=== PATIENT | female | born 1930 | race Caucasian/White ===

== ENCOUNTER 2017-09-01 12:45 | Emergency (ER) | payer MEDICARE, BC ==
[2017-09-01] MEDS ORDERED: Ciprofloxacin 500 MG Tab PO ONE (12:46)
[2017-09-01 13:10] VITALS: BP 110/67
--- NOTE | 2017-09-01 13:15 | EDM.PDOC ---
ED HPI GENERAL MEDICAL PROBLEM - General Chief Complaint: General Stated Complaint: near syncope Time Seen by Provider: 09/01/17 13:06 Source of Information: Reports: Patient, Family History Limitations: Reports: No Limitations - History of Present Illness INITIAL COMMENTS - FREE TEXT/NARRATIVE: This patient is an 87 year old female that presents to the ER. The patient was out to lunch at noon with her family. She reports that she was sitting there and just had finished eating. The patient reports that all of a sudden she did not feel well. She reports that she felt funny. The patient reports she started to sweat. She reports that she felt like she had to have a BM. She reports that her family would not allow her to get up and go to the bathroom because they were concerned she was going to have pass out. The patient reports that when she got sweaty that she had a small global headache. The patient reports that she generally felt weak. The patient family reports that they were with her and she looked tired. They report taking her BP on site and said it was low. But, did not have the numbers. The patient currently in the ER reports that she has a mild headache. She reports that she feels a "little funny".The patient denies dizziness, lightheaded, neck pain, n, v, d, f, vision changes, cp, soa, abd pain , urinary/bowel changes. The family reports that recently the patient had family over and the sewage system in the home was overworked. So, the patient over the last several days has not drank water, or used the bathroom to help the sewage system from overloading. They are concerned that she may have a UTI. Onset: Today Onset Date: 09/01/17 Onset Time: 12:00 Location: Reports: Head Quality: Reports: Ache Severity: Mild Improves with: Reports: None Worsens with: Reports: None Associated Symptoms: Reports: Diaphoresis, Headaches, Malaise, Weakness ( generally). Denies: Confusion, Chest Pain, Cough, cough w sputum, Fever/Chills , Loss of Appetite, Nausea/Vomiting, Rash, Seizure, Shortness of Breath, Syncope - Related Data Allergies Allergy/AdvReac Type Severity Reaction Status Date / Time No Known Allergies Allergy Verified 09/01/17 13:40 Home Meds: Home Meds Aspirin [Adult Low Dose Aspirin EC] 81 mg PO BID 12/06/14 [History] Calcium Carbonate [Calcium] 500 mg PO DAILY 12/06/14 [History] Cholecalciferol (Vitamin D3) [Vitamin D3] 2,000 unit PO DAILY 12/06/14 [History] Lisinopril 10 mg PO DAILY 12/06/14 [History] Magnesium 250 mg PO DAILY 12/06/14 [History] Multivitamin [Daily Multiple Vitamin] 1 tab PO DAILY 12/06/14 [History] Potassium Chloride 10 meq PO DAILY 12/06/14 [History] Simvastatin [Zocor] 10 mg PO DAILY 12/06/14 [History] Triamterene/Hydrochlorothiazid [Triamterene-HCTZ 37.5-25 MG] 1 each PO Q48H 07/16 [History] hydrALAZINE [Apresoline] 25 mg PO BID 12/06/14 [History] metFORMIN [Glucophage] 500 mg PO BIDMEALS 12/06/14 [History] Acetaminophen/HYDROcodone [[place] 325-5 MG] 1 tab PO Q4H PRN #20 tablet 12/14/14 [Rx] Past Medical History Other Hematologic History: hypokalemia - Past Surgical History Other Musculoskeletal Surgeries/Procedures:: hip surgery Social & Family History - Family History Family Medical History: Noncontributory - Tobacco Use Smoking Status *Q: Never Smoker Second Hand Smoke Exposure: No - Living Situation & Occupation Living situation: Reports: , Alone Occupation: Retired ED ROS GENERAL - Review of Systems Review Of Systems: See Below Constitutional: Reports: Diaphoresis, Other ("funny feeling") HEENT: Reports: No Symptoms Respiratory: Reports: No Symptoms Cardiovascular: Reports: No Symptoms Endocrine: Reports: No Symptoms GI/Abdominal: Reports: No Symptoms : Reports: No Symptoms Musculoskeletal: Reports: No Symptoms Skin: Reports: No Symptoms Neurological: Reports: Headache Psychiatric: Reports: No Symptoms Hematologic/Lymphatic: Reports: No Symptoms Immunologic: Reports: No Symptoms ED EXAM, GENERAL - Physical Exam Exam: See Below Exam Limited By: No Limitations General Appearance: Alert, WD/WN, No Apparent Distress Eye Exam: Bilateral Eye: EOMI, Normal Inspection, PERRL Ears: Normal External Exam, Normal Canal, Hearing Grossly Normal, Normal TMs Ear Exam: Bilateral Ear: Auricle Normal, Canal Normal, TM normal Nose: Normal Inspection, Normal Mucosa, No Blood Throat/Mouth: Normal Inspection, Normal Lips, Normal Gums, Normal Oropharynx, Normal Voice, No Airway Compromise Head: Atraumatic, Normocephalic Neck: Normal Inspection, Supple, Non-Tender, Full Range of Motion Respiratory/Chest: No Respiratory Distress, Lungs Clear, Normal Breath Sounds, No Accessory Muscle Use Peripheral Pulses: 2+: Radial (L), Radial (R), Posterior Tibial (L), Posterior Tibial (R), Dorsalis Pedis (L), Dorsalis Pedis (R) GI/Abdominal: Normal Bowel Sounds, Soft, Non-Tender, No Organomegaly, No Distention, No Abnormal Bruit, No Mass, Pelvis Stable (Female) Exam: Deferred Rectal (Female) Exam: Deferred Back Exam: Normal Inspection, Full Range of Motion. No: CVA Tenderness (L), CVA Tenderness (R) Extremities: Normal Inspection, Normal Range of Motion, Non-Tender, No Pedal Edema, Normal Capillary Refill Neurological: Alert, Oriented, CN II-XII Intact, Normal Cognition, Normal Gait, No Motor/Sensory Deficits Psychiatric: Normal Affect, Normal Mood Skin Exam: Warm, Dry, Intact, Normal Color, No Rash Lymphatic: No Adenopathy EKG INTERPRETATION EKG Date: 09/01/17 Time: 13:29 Rhythm: NSR Rate (Beats/Min): 80 ST-T: Normal Comparison: NA - No Prior EKG Course - Vital Signs Last Recorded V/S: Last Vital Signs Temp 98.2 F 09/01/17 13:01 Pulse 77 09/01/17 13:01 Resp 18 09/01/17 13:01 BP 110/67 09/01/17 13:01 Pulse Ox 96 09/01/17 13:01 - Orders/Labs/Meds Orders: Active Orders 24 hr Category Date Time Status CXR [Chest 2V] [CR] Stat Exams 09/01/17 12:54 Taken Head wo Cont [CT] Stat Exams 09/01/17 13:06 Taken CULTURE URINE [RM] Stat Lab 09/01/17 16:18 Received UA W/MICROSCOPIC [URIN] Stat Lab 09/01/17 12:52 Ordered Labs: Laboratory Tests 09/01/17 09/01/17 09/01/17 Range/Units 12:52 13:08 13:08 WBC 6.3 (5.0-10.0) 10^3/uL RBC 4.12 (4.00-5.50) 10^6/uL Hgb 12.8 (12.0-16.0) g/dL Hct 37.9 (37.0-47.0) % MCV 92.0 (82.0-94.0) fL MCH 31.1 (27.0-32.0) pg MCHC 33.8 (33.0-38.0) g/dL RDW Coeff of [place] 11.8 (11.0-15.0) % Plt Count 171 (150-400) 10^3/uL Neut % (Auto) 65.3 (35-85) % Lymph % (Auto) 21.4 (10-55) % [place] % (Auto) 11.2 (0-16) % Eos % (Auto) 1.9 (0-5) % Baso % (Auto) 0.2 (0-3) % Neut # (Auto) 4.09 (1.80-7.00) 10^3/uL Lymph # (Auto) 1.34 (1.00-4.80) 10^3/uL [place] # (Auto) 0.70 (0.00-0.80) 10^3/uL Eos # (Auto) 0.12 (0.00-0.45) 10^3/uL Baso # (Auto) 0.01 10^3/uL PT 10.4 (9.7-12.3) SEC INR 1.00 (0.92-1.18) APTT 26.7 (23.2-32.3) SEC Sodium (136-145) mEq/L Potassium (3.5-5.0) mEq/L Chloride (98-106) mEq/L Carbon Dioxide (21-32) mmol/L BUN (7-18) mg/dL Creatinine (0.6-1.0) mg/dL Est Cr Clr Drug Dosing Estimated GFR (MDRD) (>=60) mL/min Glucose (75-99) mg/dL Calcium (8.4-10.1) mg/dL Total Bilirubin (0.0-1.0) mg/dL AST (15-37) U/L ALT (12-78) U/L Alkaline Phosphatase (46-116) U/L Lactate Dehydrogenase (100-190) U/L Creatine Kinase (21-215) U/L Troponin I (0.00-0.06) ng/mL NT-Pro-B Natriuret Pep (0-1000) pg/mL Total Protein (6.4-8.2) g/dL Albumin (3.4-5.0) g/dL Urine Color Light yellow (YELLOW) Urine Appearance Cloudy (CLEAR) Urine pH 6.5 (4.5-8.0) Ur Specific [place] 1.015 (1.003-1.020) Urine Protein Trace H (NEGATIVE) mg/dL Urine Glucose (UA) 250 H (NEGATIVE) mg/dL Urine Ketones Negative (NEGATIVE) mg/dL Urine Occult Blood Trace-intact H (NEGATIVE) Urine Nitrite Negative (NEGATIVE) Urine Bilirubin Negative (NEGATIVE) Urine Urobilinogen 1.0 (0.2-1.0) EU/dL Ur Leukocyte Esterase Large H (NEGATIVE) Urine RBC 0-5 (0-5) /HPF Urine WBC Packed H (0-5) /HPF Urine Bacteria Many H (NOT SEEN) /HPF 09/01/17 09/01/17 09/01/17 Range/Units 13:08 13:08 15:30 WBC (5.0-10.0) 10^3/uL RBC (4.00-5.50) 10^6/uL Hgb (12.0-16.0) g/dL Hct (37.0-47.0) % MCV (82.0-94.0) fL MCH (27.0-32.0) pg MCHC (33.0-38.0) g/dL RDW Coeff of [place] (11.0-15.0) % Plt Count (150-400) 10^3/uL Neut % (Auto) (35-85) % Lymph % (Auto) (10-55) % [place] % (Auto) (0-16) % Eos % (Auto) (0-5) % Baso % (Auto) (0-3) % Neut # (Auto) (1.80-7.00) 10^3/uL Lymph # (Auto) (1.00-4.80) 10^3/uL [place] # (Auto) (0.00-0.80) 10^3/uL Eos # (Auto) (0.00-0.45) 10^3/uL Baso # (Auto) 10^3/uL PT (9.7-12.3) SEC INR (0.92-1.18) APTT (23.2-32.3) SEC Sodium 139 (136-145) mEq/L Potassium 3.9 (3.5-5.0) mEq/L Chloride 103 (98-106) mEq/L Carbon Dioxide 28 (21-32) mmol/L BUN 33 H (7-18) mg/dL Creatinine 1.3 H (0.6-1.0) mg/dL Est Cr Clr Drug Dosing TNP Estimated GFR (MDRD) 39 L (>=60) mL/min Glucose 283 H D (75-99) mg/dL Calcium 9.0 (8.4-10.1) mg/dL Total Bilirubin 1.0 (0.0-1.0) mg/dL AST 29 (15-37) U/L ALT 24 (12-78) U/L Alkaline Phosphatase 109 (46-116) U/L Lactate Dehydrogenase 212 H (100-190) U/L Creatine Kinase 379 H (21-215) U/L Troponin I < 0.017 < 0.017 (0.00-0.06) ng/mL NT-Pro-B Natriuret Pep 107 (0-1000) pg/mL Total Protein 7.1 (6.4-8.2) g/dL Albumin 3.6 (3.4-5.0) g/dL Urine Color (YELLOW) Urine Appearance (CLEAR) Urine pH (4.5-8.0) Ur Specific [place] (1.003-1.020) Urine Protein (NEGATIVE) mg/dL Urine Glucose (UA) (NEGATIVE) mg/dL Urine Ketones (NEGATIVE) mg/dL Urine Occult Blood (NEGATIVE) Urine Nitrite (NEGATIVE) Urine Bilirubin (NEGATIVE) Urine Urobilinogen (0.2-1.0) EU/dL Ur Leukocyte Esterase (NEGATIVE) Urine RBC (0-5) /HPF Urine WBC (0-5) /HPF Urine Bacteria (NOT SEEN) /HPF Meds: Medications Discontinued Medications Generic Name Dose Route Start Last Admin Trade Name Freq PRN Reason Stop Dose Admin Ceftriaxone Sodium 1 gm 09/01/17 16:31 09/01/17 17:25 Rocephin IVPUSH 09/01/17 16:32 1 gm ONETIME ONE Administration Ciprofloxacin 1 packet 09/01/17 17:05 09/01/17 17:33 Take Home: Ciprofloxacin 500 Mg, 2 Tab Pack PO 09/01/17 17:06 Not Given ONETIME ONE Sodium Chloride 1,000 mls @ 1,000 mls/hr 09/01/17 13:38 09/01/17 17:33 Normal Saline IV 09/01/17 14:37 Not Given .BOLUS ONE - Radiology Interpretation Free Text/Narrative:: Head CT: No acute findings. CT Results Date: 09/01/17 - Re-Assessments/Exams Free Text/Narrative Re-Assessment/Exam: 09/01/17 17:05 This patient has renal insufficiency and UTI. I have discussed with her and family possibility of admission verses going home. The patient is currently drinking water. The patient does not want to be admitted. She reports that she would like to go home. She reports that she will drink a lot of water at home. She is alert and oriented. She reports she feels much better and has no complaints. Family with her at bedside reports that they feel comfortable taking her home. I will discharge this patient. Family and the patient have been educated and voice understanding of when to return. Understand risks of going home. Departure - Departure Time of Disposition: 17:02 Disposition: Home, Self-Care 01 Condition: Fair Clinical Impression: Dehydration, Renal insufficiency, UTI, Urinary tract infectious disease - Discharge Information Instructions: Urinary Tract Infection, Adult, [id number], Dehydration, Elderly Referrals: Mert Banerjee MD [Primary Care Provider] - Forms: ED Department Discharge Additional Instructions: Followup with primary care provider this week for recheck Return to ER for worsening of condition or any emergent concerns Increase water intake Cipro 500mg 1 pill twice a day for 5 days #10 no refill: 1 day take home #2 no refill - My Orders Last 24 Hours: My Active Orders 09/01/17 12:52 UA W/MICROSCOPIC [URIN] Stat 09/01/17 12:54 CXR [Chest 2V] [CR] Stat 09/01/17 13:06 Head wo Cont [CT] Stat 09/01/17 16:18 CULTURE URINE [RM] Stat - Assessment/Plan Last 24 Hours: My Active Orders 09/01/17 12:52 UA W/MICROSCOPIC [URIN] Stat 09/01/17 12:54 CXR [Chest 2V] [CR] Stat 09/01/17 13:06 Head wo Cont [CT] Stat 09/01/17 16:18 CULTURE URINE [RM] Stat Plan: PLEASE SEE RN NOTE FOR PFSH.
[2017-09-01 13:27] LABS: CHLORIDE,CL 103 mEq/L (98-106); SODIUM,NA 139 mEq/L (136-145)
[2017-09-01] MEDS ORDERED: Sodium Chloride 0.9% 1,000 ML IV ONE (13:38)
[2017-09-01] MEDS ORDERED: cefTRIAXone 1 GM Vial IVPUSH ONE (16:31)
[2017-09-01] MEDS ORDERED: Take Home: Ciprofloxacin 500 MG Tab, 2 Tab Pack PO ONE (17:05)
== END 2017-09-01 17:25 | disposition home or self-care (01) ==
LOC: CC.ED 12:45
DX: E86.0 Dehydration (principal); N39.0 Urinary tract infection, site not specified; N28.9 Disorder of kidney and ureter, unspecified; Z79.82 Long term (current) use of aspirin; Z79.899 Other long term (current) drug therapy
CPT/HCPCS: 36415; 70450; 71046; 80053; 81001; 82550; 83615; 83880; 84484; 85025; 85610; 85730; 87086; 87088; 87186; 93005; 96372; 99285; A9270-GY; J0696